=== PATIENT | female | born 1965 | race African-American/Black ===

== ENCOUNTER 2020-01-05 19:35 | Emergency (ER) | payer OTHER ==
[~2020-01-05] VITALS: Ht 157.5 cm; Wt 50.0 kg
--- NOTE | 2020-01-05 20:14 | PHYS DOC ---
Past Medical History Past Medical History: No Pertinent History Past Surgical History: No Surgical History Smoking Status: Never Smoker Alcohol Use: None Drug Use: None General Adult EDM: Chief Complaint: ALCOHOL INTOXICATION HPI: HPI: Patient is a 54 year old female with a past medical history of alcohol abuse (daily drink) and hypertension (but no on any medications) presents for evaluation to ER by EMS due to intoxication. Patient was found walking in the rain. She was evaluated by PD and found to have an elevated alcohol level. EMS took patients blood pressure and noted it to be >200 systolic. On exam patient axox4--- she is intoxicated. She states she is a daily drinking. She admits to drinking 2 beers today. Patient states she walked to [employer] for dinner, she had a hamburger and 2 beers, then after dinner was walking home. Patient has no complaints. Patient was previously on blood pressure medications. She states she has not taken medications for a while. She does not know what medication she was on. Patient states she stopped taking her medications because it caused her to have syncopal episodes. Review of Systems: Review of Systems: Constitutional: Denies fever or chills. [] Eyes: Denies change in visual acuity. [] HENT: Denies nasal congestion or sore throat. [] Respiratory: Denies cough or shortness of breath. [] Cardiovascular: Denies chest pain or edema. [] GI: Denies abdominal pain, nausea, vomiting, bloody stools or diarrhea. [] : Denies dysuria. [] Musculoskeletal: Denies back pain or joint pain. [] Integument: Denies rash. [] Neurologic: Denies headache, focal weakness or sensory changes. [] Endocrine: Denies polyuria or polydipsia. [] Lymphatic: Denies swollen glands. [] Psychiatric: Denies depression or anxiety. [positive intoxication] Heart Score: Risk Factors: Risk Factors: DM, Current or recent (<one month) smoker, HTN, HLP, family history of CAD, obesity. Risk Scores: Score 0 - 3: 2.5% MACE over next 6 weeks - Discharge Home Score 4 - 6: 20.3% MACE over next 6 weeks - Admit for Clinical Observation Score 7 - 10: 72.7% MACE over next 6 weeks - Early Invasive Strategies Current Medications: Current Medications Medications (Trade) Dose Ordered Sig/Alisia Start Time Stop Time Status Last Admin Dose Admin Clonidine HCl (Catapres) 0.1 mg 1X ONCE 01/05/20 20:15 01/05/20 20:16 UNV Allergies: Allergies: Allergies Coded Allergies Type Severity Reaction Last Updated Verified Penicillins Allergy Unknown 02/27/14 No Physical Exam: PE: General: alert, no acute distress. Skin: warm, dry and intact. Head:: Normocephalic, atraumatic. Neck: Trachea midline. Eyes: EOMI, Normal conjunctiva, No drainage CARDIOVASCULAR: Regular rate and rhythm RESPIRATORY: No respiratory distress Back: Full range of motion. MUSCULOSKELETAL: Full range of motion of bilateral upper and lower extremities. GASTROINTESTINAL: Abdomen soft without rebound or guarding. NEUROLOGICAL: Alert and noted to person, place and time. No neurological deficits observed Psychiatric: Cooperative. Normal judgment alcohol on breath intoxicated EKG: EKG: [] Radiology/Procedures: Radiology/Procedures: [] Course & Med Decision Making: Course & Med Decision Making Pertinent Labs and Imaging studies reviewed. (See chart for details) [] Patient was evaluated for chief complaint. Based upon history of present ill ness and physical exam I elected not to perform any blood work. Is intoxicated but has no complaints. She is ANO x4. Patient blood pressure noted to be elevated. Ordered Catapres 0.1 mg. We will observe the patient and then discharge patient home. BP improved with catapress Re-evaluation @ 2158 140/63. Patient clinically sober. Ambulated with steady gait. Andree Disclaimer: Andree Disclaimer: This electronic medical record was generated, in whole or in part, using a voice recognition dictation system. Departure Departure Impression: Primary Impression: Alcohol intoxication Additional Impression: Hypertension Disposition: 01 HOME, SELF-CARE Condition: IMPROVED Referrals: UNKNOWN PCP NAME (PCP) Patient Instructions: Alcohol Intoxication, Hypertension Justicifation of Admission Dx: Justifications for Admission: Justification of Admission Dx: N/A GLENDA KING DO Jan 05, 2020 20:14
[2020-01-05] MEDS ORDERED: cloNIDine HCL 0.1 MG TABLET PO ONE (20:15)
[2020-01-05 22:51] VITALS: BP 157/82
== END 2020-01-05 23:06 | disposition home or self-care (01) ==
LOC: ER 19:35
DX: F10.229 Alcohol dependence with intoxication, unspecified (principal); I10 Essential (primary) hypertension; R55 Syncope and collapse
CPT/HCPCS: 99285

== ENCOUNTER 2020-02-17 11:21 | Emergency (ER) | payer SELFPAY ==
[~2020-02-17] VITALS: Ht 157.5 cm; Wt 49.0 kg
[~2020-02-17 11:21] MED LIST: ACET325T9 PO; AMLO-187 PO; ATEN100T PO; DOCU-153 PO; OXYC1TAB15 PO
[2020-02-17] MEDS ORDERED: cloNIDine HCL 0.1 MG TABLET PO ONE (12:30)
--- NOTE | 2020-02-17 14:28 | PHYS DOC ---
Past Medical History Past Medical History: Anemia, GERD, Hypertension (NEVA ZHENG APRN) Past Surgical History: Other Additional Past Surgical Histo: RIGHT ARM ORIF (NEVA ZHENG APRN) Smoking Status: Current Every Day Smoker Additional Information: SMOKES 1.5 CIGARETTES A DAY Alcohol Use: Heavy Additional Information: DRANK 3 BEERS LAST NIGHT Drug Use: None (NEVA ZHENG APRN) General Adult EDM: Chief Complaint: WOUND CHECK HPI: HPI: Patient is a 54 year old female with history of hypertension who presents to the ED today with a right forearm post op bleeding. Patient states on February 11, 2020 she had reduction and fixation of the right forearm fractures. She states she was informed by the orthopedic doctor if she has any bleeding to come to the ED. She states she noted her dressing was wet over the weekend and decided to come to the ED today. Denies any new injuries. (NEVA ZHENG APRN) Review of Systems: Review of Systems: Constitutional: Denies fever or chills. [] Musculoskeletal: Reports right forearm bleeding Integument: Denies rash. [] Neurologic: Denies headache, focal weakness or sensory changes. [] Psychiatric: Denies depression or anxiety. [] (NEVA ZHENG APRN) Heart Score: Risk Factors: Risk Factors: DM, Current or recent (<one month) smoker, HTN, HLP, family history of CAD, obesity. Risk Scores: Score 0 - 3: 2.5% MACE over next 6 weeks - Discharge Home Score 4 - 6: 20.3% MACE over next 6 weeks - Admit for Clinical Observation Score 7 - 10: 72.7% MACE over next 6 weeks - Early Invasive Strategies (NEVA ZHENG APRN) Current Medications: Current Medications Medications (Trade) Dose Ordered Sig/Alisia Start Time Stop Time Status Last Admin Dose Admin Clonidine HCl (Catapres) 0.2 mg 1X ONCE 02/17/20 12:30 02/17/20 12:31 DC 02/17/20 12:44 0.2 MG (NEVA ZHENG APRN) Allergies: Allergies: Allergies Coded Allergies Type Severity Reaction Last Updated Verified Penicillins Allergy Severe 02/12/20 Yes (NEVA ZHENG APRN) Physical Exam: PE: Constitutional: Well developed, well nourished, no acute distress, non-toxic ap pearance. [] Abdomen: Bowel sounds normal, soft, no tenderness, no masses, no pulsatile masses. [] Skin: Warm, dry, no erythema, no rash. [] Back: No tenderness, no CVA tenderness. [] Extremities: Splint has been removed by the nursing staff from the right forearm. Right forearm appears swollen, there is blisters over the area that the dressing was. There is dried blood on the dressing. No signs of infection on both incision sites on the ventral and dorsal aspect of the forearm. The ventral aspect of the forearm has stitches, the incision site is swollen, no stitches have dehisced. The dorsal aspect of the right forearm incision site has nehemias, incision site is well approximated. No signs of infection. +2 right radial pulse. Full range of motion to the right fingers though patient is noted to have +2 edema to the right hand. Cap refill less than 2 seconds the right fingers. Neurologic: Alert and oriented X 3, normal motor function, normal sensory function, no focal deficits noted. [] Psychologic: Affect normal, judgement normal, mood normal. [] (NEVA ZHENG APRN) Current Patient Data: Vital Signs: Vital Signs Date Time Temp Pulse Resp B/P (MAP) Pulse Ox O2 Delivery O2 Flow Rate FiO2 02/17/20 12:45 81 214/89 (130) 97 Room Air 02/17/20 12:42 16 02/17/20 11:21 98.3 98.3 (NEVA ZHENG APRN) EKG: EKG: [] (NEVA ZHENG APRN) Radiology/Procedures: Radiology/Procedures: [] (NEVA ZHENG APRN) Course & Med Decision Making: Course & Med Decision Making Pertinent Labs and Imaging studies reviewed. (See chart for details) This is a 54-year-old male patient presented to the ED today with right forearm bleeding postop. He had internal reduction and fixation of the right forearm on February 11, 2020. She arrives in the ED with dressing that has dried blood. Dr. Jorgensen who did the procedure came and evaluated patient. The incision site was covered and splinted by the ED RN. Neurovascular exam done by me is normal. Patient will follow up with Dr. Jorgensen. (NEVA ZHENG APRN) Dragon Disclaimer: Dragon Disclaimer: This electronic medical record was generated, in whole or in part, using a voice recognition dictation system. (NEVA ZHENG APRN) Departure Departure Impression: Primary Impression: Visit for wound check Disposition: 01 DC HOME SELF CARE/HOMELESS Condition: STABLE Referrals: NO PCP (PCP) JB JORGENSEN MD follow up in the course of this week Patient Instructions: Incision Care Additional Instructions: Please elevate your right upper extremity. Please follow-up with Dr. Jorgensen in the course of this week. Ensure you are taking your blood pressure medicines. Attending Signature Attending Signature I have reviewed the PA/H[employer]ICIDE [employer]IEUTENANT's note and plan of care. I was available for consultation as needed during the patient's visit in the emergency department. I agree with the clinical impression, plan, and disposition. (ZENY SANCHEZ DO) NEVA ZHENG APRN Feb 17, 2020 14:28 ZENY SANCHEZ DO Feb 17, 2020 19:48
[2020-02-17 14:30] VITALS: BP 124/65
== END 2020-02-17 14:37 | disposition home or self-care (01) ==
LOC: ER 11:21
DX: L76.22 Postprocedural hemorrhage of skin and subcutaneous tissue following other procedure (principal); I10 Essential (primary) hypertension; K21.9 Gastro-esophageal reflux disease without esophagitis; F17.210 Nicotine dependence, cigarettes, uncomplicated; F10.10 Alcohol abuse, uncomplicated; Z98.890 Other specified postprocedural states; Z88.0 Allergy status to penicillin
CPT/HCPCS: 99283